=== PATIENT | male | born 1975 | race Caucasian/White ===

== ENCOUNTER 2023-12-12 18:07 | Inpatient (IN) | payer MEDICAID, SELFPAY ==
--- NOTE | ~2023-12-12 | CT_ITS ---
CT head/brain wo IV con CLINICAL INFORMATION: Reason for Exam Fall, head injury, R/O fracture, bleed COMPARISON: No prior CT scan available for comparison. TECHNIQUE: Department standard protocol. This CT examination was performed using dose optimization techniques as appropriate, variously including the following: *Automated exposure control *Adjustment of mA and/or kV according to patient size (this includes techniques or standardized protocols for targeted exams where dose is matched to indication/reason for exam; i.e. extremities or head) *Use of iterative reconstruction technique DLP: 890 mGy-cm FINDINGS: CEREBRAL HEMISPHERES: There is no evidence of intra-axial or extra-axial mass, hemorrhage or acute infarct. BRAIN PARENCHYMA: Normal brown-white matter differentiation. SUBDURAL SPACE: No bleed. BASAL GANGLIA AND PINEAL GLAND: Unremarkable VENTRICLES: Symmetric and normal in size. CEREBELLUM AND BRAINSTEM: No space-occupying mass, hemorrhage or acute infarct. CEREBELLOPONTINE ANGLES: No lesion found. ORBITS: No intraorbital mass. VESSELS: Unremarkable SKULL BASE: Unremarkable INCLUDED SINUSES AT SKULL BASE: Clear SKULL AND SKIN: Mucosal thickening right maxillary sinus and occluding the right ostiomeatal units. CT/CT head/brain wo IV con IMPRESSION: 1. No CT evidence of intracranial space-occupying mass, bleed or infarct. 2. Mucosal thickening right maxillary sinus and occluding the right ostiomeatal units.
--- NOTE | ~2023-12-12 | CT_ITS ---
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 TECHNIQUE: Multidetector volumetric imaging was performed from the superior aspect of the liver through the pubic symphysis 85 mL of Omnipaque 350 injected Sagittal and coronal reformatted images were obtained on the technologist's workstation. This CT examination was performed using dose optimization techniques as appropriate, variously including the following: *Automated exposure control *Adjustment of mA and/or kV according to patient size (this includes techniques or standardized protocols for targeted exams where dose is matched to indication/reason for exam; i.e. extremities or head) *Use of iterative reconstruction technique DLP: 2166 mGy-cm FINDINGS: LOWER THORAX: Included lung bases are clear. HEPATOBILIARY: No focal hepatic lesions. No biliary ductal dilatation. GALLBLADDER: Gallbladder unremarkable. SPLEEN: Spleen is normal in size. PANCREAS: Pancreas is small atrophic, there is mild peripancreatic fat stranding around the tail of the pancreas raising concern for pancreatitis. There is fluid-filled bilobed structure at the center of the fat stranding measuring 3 x 1.9 cm which could be a pseudocyst versus cystic lesion. There are pancreatic calcifications which might be sequela of chronic pancreatitis. pancreatic soft tissue stranding adherent fixed to the adjacent gastric wall. More advanced imaging with contrast enhanced MRI might be indicated for more investigation. STOMACH AND GASTROINTESTINAL TRACT: Stomach is grossly unremarkable. There is no bowel distention or thickening. No CT evidence of appendicitis. ADRENALS: No adrenal nodules. KIDNEYS/URETERS: Tiny cyst in the upper pole of the right kidney measure up to 7 mm, these are commonly benign, no follow-up imaging is recommended. No solid renal lesion or suspicious mass found. No kidney stone or hydronephrosis. URINARY BLADDER: Partially decompressed. PELVIC VISCERA: Unremarkable PERITONEUM: No free air or fluid. LYMPH NODES: No lymphadenopathy. VASCULAR:Abdominal aorta normal in size, no aneurysm found. BONES, ABDOMINAL WALL AND SOFT TISSUES: Age-appropriate changes of the spine and skeletal system, no destructive osteolytic or osteosclerotic bone lesion found CT/CT abdomen pelvis w IV con IMPRESSION: 1. There is mild peripancreatic fat stranding around the tail of the pancreas raising concern for MILD ACUTE PANCREATITIS. There are diffuse pancreatic calcifications which might be sequela of prior or chronic pancreatitis. 2. There is a bilobed fluid-filled structure within the tail of the pancreas at the center of the fat stranding measuring 3 x 1.9 cm which could be developing pseudocyst versus cystic neoplasm lesion. Pancreatic soft tissue from the tail is abutting tethering fixed into the adjacent gastric wall. More advanced imaging with contrast enhanced MRI might be indicated for more investigation to assess for the possibility of neoplasm. 3. Other noncritical findings as above.
--- NOTE | ~2023-12-12 | MR_ITS ---
EXAMINATION: MR ABDOMEN WITHOUT AND WITH CONTRAST MR CHOLANGIOPANCREATOGRAPHY CLINICAL INFORMATION: Abdominal pain, pancreatic cystic lesion COMPARISON: CT scan of abdomen and pelvis on 12/12/2023 TECHNIQUE: Examination was performed in a high field strength MRI scanner. Multiplanar multisequence MR imaging of the abdomen was performed without IV contrast enhancement. Multiphasic Axial T1-weighted fat-suppressed images of the upper abdomen were obtained after IV injection of 9 mL Gadavist. Coronal T1-weighted fat-suppressed images of the abdomen were obtained following the dynamic axial series. MR cholangiopancreatography was performed with heavily T2 weighted sequences. 3-dimensional reconstruction of image data was performed. This was performed under concurrent direct supervision and monitoring by radiologist. Maximum intensity projection images were constructed. FINDINGS: MR CHOLANGIOPANCREATOGRAPHY: Normal gallbladder without filling defects. Cystic duct is unremarkable. Bilateral intra hepatic bile ducts, common hepatic duct and common bile duct are normal in size without filling defects. Pancreatic duct shows serial saccular T2 hyperintense nonenhancing cystic lesion or varicose pattern of dilatation up to 0.66 cm in AP diameter in the distal pancreatic body and tail, contiguous with the septated cystic lesion. LIVER: The liver shows no focal lesion. The calculated hepatic fat percentage is 4.2%, compatible with normal. PANCREAS: Pancreas is diffusely atrophic. A nonenhancing septated cystic lesion is seen in the pancreatic tail, measuring 1.7 cm in AP diameter, 3.1 cm in width, 1.9 cm in vertical height with nonenhancing T1 hyperintense internal septations (previously 1.9 x [address] scan). No occluding mass lesion with abnormal signal or enhancement could be seen in the mid pancreatic body proximal to the dilated distal pancreatic duct. SPLEEN: Spleen is normal in size without focal lesion. ADRENAL: Bilateral adrenal glands are normal in shape and size. KIDNEYS: Bilateral kidneys are normal in size with a T2 hyperintense nonenhancing simple cyst at posterior lateral superior right renal pole measuring 0.8 cm in diameter, for which no follow up imaging is recommended. Advanced L4-L5 to L5-S1 degenerative lumbar disc disease and mild posterior disc protrusions are seen. MR/MR abdomen wo/w con IMPRESSION: 1. Persistent septated pancreatic tail cystic lesion with nonenhancing septations up to 3 cm in size is seen since earlier CT scan of abdomen. In addition, the current examination shows serial distal pancreatic body saccular cystic lesions or varicose dilatation of pancreatic duct without occluding pancreatic mass lesion. Findings may reflect post pancreatitis pancreatic duct stricture and multiple distal body and tail pseudocysts or multiple intraductal papillary mucinous neoplasms. 2. The pancreatic lesions show low risk imaging features. If endoscopic ultrasound examination and fine-needle aspiration are not contemplated, repeat imaging with pre and postcontrast MRI of abdomen with MRCP sequence every 6 months x4, followed by every 1 years x2, then every 2 years x3 to establish stability over 10 years is recommended by [employer]. 3. Normal gallbladder and biliary tree. 4. Right upper pole renal cortical simple cyst is found, for which no follow up imaging is recommended.
--- NOTE | ~2023-12-12 | CT_ITS ---
EXAMINATION: CT CERVICAL SPINE without contrast CLINICAL INFORMATION: Reason for Exam Fall, neck pain, rule out fracture COMPARISON: No prior CT available, TECHNIQUE: Computed axial sagittal and coronal images acquired using department's standard protocol. This CT examination was performed using dose optimization techniques as appropriate, variously including the following: *Automated exposure control *Adjustment of mA and/or kV according to patient size (this includes techniques or standardized protocols for targeted exams where dose is matched to indication/reason for exam; i.e. extremities or head) *Use of iterative reconstruction technique CONTRAST: None DLP: 491 mGy-cm FINDINGS: SKULL BASE: Visualized structures at skull base are normal, Included facial sinuses are clear, CERVICAL VERTEBRAE: All cervical vertebrae identified maintaining a proper height. Reversal of normal cervical lordosis probably spasm. Osseous density near the tip of the posterior spinous process of C7 probably incompletely fused secondary ossification center. Odontoid process is properly positioned intact. The lateral mass of C1 and atlantooccipital joints are intact. No prevertebral soft tissue swelling. DISCS: Loss of disc height and developed osteophytes from the edges of endplates at multiple levels especially at C5-C6 and C6-C7 suggests underlying degenerative disc disease. At C5-C6 there are small osteophytes protruding from the edges of endplates encroaching on the neural foramen bilaterally especially the right. Included lung apices are clear. There are peripheral emphysematous changes of the lungs. There are facet joints arthropathy at multiple levels. No fracture or dislocation. PARAVERTEBRAL SOFT TISSUE: There are few mildly enlarged cervical lymph nodes along the carotid sheaths on the right measure up to 2.8 cm craniocaudally, 1.2 x 1.2 cm axially. On the left 1.7 x 1.5 cm axially and about 2.2 cm craniocaudally, this could be inflammatory reactive, cannot rule out the possibility of primary or metastatic process. CT/CT cervical spine wo IV con IMPRESSION: 1. No CT evidence of cervical spine fracture. 2. Reversal of normal cervical lordosis probably spasm. 3. Advanced degenerative disc disease at multiple levels. 4. Facet joints arthropathy at multiple levels. 5. Peripheral pulmonary emphysema. 6. Developed osteophyte from the edges of endplates encroaching on the neural foramen possibly foraminal stenosis at C5-C6 right more than left, MRI could be utilized to assess for possible nerve impingement if clinically indicated. 7. Incidental finding was made of Mildly enlarged bilateral cervical lymph nodes along the carotid sheaths, although could be inflammatory or reactive, cannot rule out the possibility of primary or metastatic process. Clinical correlation and follow-up outpatient cervical ultrasound recommended. (Referring physician staff is being called, by physician staff assistance, to be alerted of the above critical findings and recommendations.) EM 12/12/2023 9:46 PM
--- NOTE | ~2023-12-12 | XR_ITS ---
EXAMINATION: XR KNEE, RIGHT CLINICAL INFORMATION: Knee pain rule out fracture COMPARISON: None available. TECHNIQUE: 2 views of right knee, including AP and lateral. FINDINGS: No significant narrowing cough medial compartment of right knee joint with subchondral sclerosis and marginal spurring seen. There is no fracture identified. There is suprapatellar fullness most likely due to small joint effusion. XR/XR knee RT 2V IMPRESSION: Changes of osteoarthritis and small joint effusion on the right
--- NOTE | ~2023-12-12 | XR_ITS ---
EXAMINATION: XR SHOULDER, RIGHT CLINICAL INFORMATION: Fall COMPARISON: None available. TECHNIQUE: 4 views frontal lateral oblique and scapular Y view of the right shoulder. FINDINGS: Cephalad migration of the humeral head, could be a sequela of chronic rotator cuff tear. Underlying degenerative osteoarthritis of the glenohumeral joint and mild DJD of adjacent AC joint. No radiographic evidence of acute fractures. Adjacent scapula and acromion process are intact. Included ribs and adjacent lungs are clear. XR/XR shoulder RT min 2V IMPRESSION: 1. No radiographic evidence of acute fracture. 2. Cephalad migration of humeral head could be a sequela of chronic rotator cuff tear. This can be evaluated by MRI if clinically indicated. 3. Underlying degenerative osteoarthritis.
[2023-12-12 18:28] VITALS: BP 128/90; BP 133/88; PULSE 78; PULSE 91; RESP 18; TEMP 36.8; O2SAT 95; O2SAT 98; BMI 25.3
--- NOTE | 2023-12-12 19:19 | ED_ITS ---
HPI - Abdominal Pain General Chief Complaint: Abdominal Pain Stated Complaint: L side pain getting worse.hx of pancreatitis Time Seen by Provider: 12/12/23 18:56 Source: patient Mode of arrival: EMS Limitations: no limitations History of Present Illness HPI narrative: 48-year-old male with a history of alcohol use disorder, pancreatitis, depression who was currently at [facility] for suicidal ideation who presents emergency department for evaluation of 3 days of epigastric and lower abdominal pain. Patient states the pain was initially intermittent but now is constant and is more severe. He points to his epigastric area and left lower quadrant area when asked to localize the pain. Pain is a constant ache with a severe sharp pain that is 9/10 at its worst. Patient states the pain feels similar to his pancreatitis pain that he has had in the past but it is much more severe. Patient states that he had 2-3 episodes of vomiting yesterday and 1 episode of vomiting today. There was no blood in the emesis. Patient states that last night at around midnight when he was in the bathroom he fainted and struck his head, right shoulder and right knee. Since that time he states he has had a headache, right shoulder and right knee pain. Patient states that he drinks 1-1/2 pt of vodka per day with his last drink being 4 days prior. He does not believe that he is getting any medications at [facility] for alcohol withdrawal. Patient states that he was depressed and suicidal secondary to the break up he is several months ago. Related Data Allergies Allergy/AdvReac Type Severity Reaction Status Date / Time No Known Allergies Allergy Verified 12/12/23 19:17 Review of Systems Review of Systems Yes all other systems are reviewed and are negative [facility] Past Medical History [facility] Narrative: Past medical history: Alcohol use disorder, depression, pancreatitis. Social history: Patient smokes 1 pack of cigarettes per day times 40 years. He drinks 1-1/2 pt of vodka daily but stopped drinking 4 days prior. He denies drug use. Social History Social History Smoked in Last 30 Days: No Use of substances other than those prescribed or required for medical reasons: No Advance Directives: No Advance Directives Information Provided: No Physical Exam ED Vital Signs: Vital Signs - 24 hr 12/12/23 18:28 12/12/23 21:04 Temperature 98.2 F 98.1 F Pulse Rate 91 72 Respiratory Rate 18 16 Blood Pressure 133/88 111/69 Pulse Oximetry 98 94 Oxygen Delivery Method Room Air Room Air BMI result Body Mass Index 25.3 Vital signs were normal Exam General: Awake, alert in no distress Head: Normocephalic, atraumatic EENT: PERRL, Lids normal, sclera normal, conjunctiva normal, nose normal , ears normal, throat without erythema or exudates Neck: Cervical spine tenderness and is with palpation of trapezius muscle bilaterally Lung: breath sounds symmetric, no wheezing, rales or rhonchi Chest: symmetric movement, nontender Heart: regular rate and rhythm, normal S1, S2 no murmurs or rubs Abdomen: Distended, normoactive bowel sounds, moderate epigastric tenderness, moderate left upper and left lower quadrant tenderness, no rebound, no voluntary or involuntary guarding Back: no vertebral tenderness, no CVAT Extremities: Right children right knee tenderness with no obvious deformity Neuro: Awake, alert, oriented, normal speech,moves all extremities symmetrically Psych: Pleasant, cooperative Medical Decision Making Medical Decision Making MDM Narrative: 48-year-old male with a history of alcohol use disorder, pancreatitis, depression who was currently at [facility] x3 days for suicidal ideation who presents emergency department for evaluation of 3 days of epigastric and lower abdominal pain initially intermittent but now constant and severe associated with nausea and vomiting, patient states that it feels similar to his pancreatitis pain but more severe. Patient also states that his syncopal episode last night at around midnight, he struck his head, right shoulder and right knee. Patient drinks 1-1/2 pt of vodka per day with last drink 4 days prior. Vital signs were normal. Exam did reveal epigastric left upper and left lower quadrant tenderness, tenderness palpation of his right knee and right shoulder. Also has cervical spine tenderness. Differential diagnosis: Abdominal pain:-pancreatitis, diverticulitis, ureteral colic Syncope: Vasovagal syncope secondary to pain, myocardial ischemia, myocardial infarction, arrhythmia, electrolyte abnormality, anemia Fall: Skull fracture, intracranial bleed, cervical fracture, cervical neck strain, right shoulder fracture, right shoulder contusion, right knee fracture, right knee contusion Following evaluation was ordered: CBC, CMP, lipase, troponin, urinalysis, CT head and cervical spine, CT abdomen pelvis with IV contrast, XR right shoulder and right knee Patient was treated with the following: Zofran 4 mg IV, Toradol 15 mg IV and normal saline x1 L 22:39 My interpretation patient's laboratory evaluation is as follows: CBC was normal. CMP revealed an elevated alk-phos of 157 and a normal lipase of 45. Troponin was below detectable limits. CT scan of the head was negative. CT scan of the abdomen pelvis with IV contrast is consistent with acute on chronic pancreatitis. Patient got minimal improvement with Toradol 15 mg IV and morphine 4 mg IV, he was ordered to get Dilaudid 1 mg IV. X-rays of the right shoulder and right knee were negative for fracture. I did discuss the incidental finding on the CT scan of the neck with the patient and the need for follow-up as an outpatient Patient's presentation was discussed with the covering hospitalist, Dr. Martinez and the patient is admitted for further management. Lab Data 12/12/23 19:52 12/12/23 19:52 Labs: Lab Results 12/12/23 Range/Units 19:52 WBC 7.8 (4.8-10.8) X10*3/uL RBC 4.91 (4.60-5.80) X10*6/uL Hgb 14.0 (14.0-18.0) g/dl Hct 42.9 (42.0-52.0) % MCV 87.4 (80.0-98.0) fL MCH 28.5 (27.0-33.0) pg MCHC 32.6 (31.0-36.0) g/dl RDW 15.9 (11.0-16.0) % Plt Count 347 (160-400) X10*3/uL MPV 9.2 L (9.4-12.4) fL Immature Gran % (Auto) 0.3 (0.0-0.4) % Neut % (Auto) 53.5 (45-73) % Lymph % (Auto) 27.4 (20-40) % [place] % (Auto) 12.1 H (2-11) % Eos % (Auto) 6.4 H (0-4) % Baso % (Auto) 0.3 (0-2) % Lymph # (Auto) 2.1 (1.2-4.9) X10*3/uL [place] # (Auto) 0.9 (0.1-1.2) X10*3/uL Eos # (Auto) 0.5 H (0.0-0.4) X10*3/uL Baso # (Auto) 0.0 (0.0-0.2) X10*3/uL Abs Immat Gran (auto) 0.02 (0.00-0.03) X10*3/uL Absolute Neuts (auto) 4.2 (2.0-8.3) x10*3/uL Absolute Nucleated RBC 0.000 (0.0-0.012) X10*3/uL Nucleated RBC % (auto) 0.0 (0.0-0.2) /100WBC Sodium 138 (135-145) mmol/L Potassium 4.3 (3.3-5.1) mmol/L Chloride 103 (96-108) mmol/L Carbon Dioxide 26 (22-29) mmol/L Anion Gap 13 (12-20) BUN 13 (9-16) mg/dL Creatinine 0.71 (0.5-1.4) mg/dL Estim Creat Clear Calc 140.6 Estimated GFR > 60 Random Glucose 98 (60-115) mg/dL Calcium 9.6 (8.4-10.2) mg/dL Total Bilirubin 0.2 (0.0-1.0) mg/dL AST 13 (5-37) U/L ALT 18 (0-40) U/L Alkaline Phosphatase 157 H (39-117) U/L Troponin I High Sens < 2.7 (<3.5-35.0) ng/L Total Protein 8.1 H (6.5-8.0) g/dL Albumin 4.1 (3.5-5.0) g/dL Lipase 45 (8-78) U/L Independent Interpretation I performed an independent interpretation of an: EKG and Plain X-Ray Interpretation: My independent interpretation patient's 12 EKG done at 19:33 hours is as follows: Normal sinus rhythm rate of 84, normal CT interval, QRS duration QTC interval, no ST segment elevation, no ST segment depression, no T-wave abnormalities, no PVCs, no PACs-this is a normal EKG My independent interpretation patient's right shoulder and right knee x-ray is as follows: No acute fractures seen Radiology Impression Discussion of test interpretation with radiology: I have reviewed the radiologist's reading. Radiologist Impression: CT head/brain wo IV con IMPRESSION: 1. No CT evidence of intracranial space-occupying mass, bleed or infarct. 2. Mucosal thickening right maxillary sinus and occluding the right ostiomeatal units. Dictated By: Jeremy Edwards MD CT cervical spine wo IV con IMPRESSION: 1. No CT evidence of cervical spine fracture. 2. Reversal of normal cervical lordosis probably spasm. 3. Advanced degenerative disc disease at multiple levels. 4. Facet joints arthropathy at multiple levels. 5. Peripheral pulmonary emphysema. 6. Developed osteophyte from the edges of endplates encroaching on the neural foramen possibly foraminal stenosis at C5-C6 right more than left, MRI could be utilized to assess for possible nerve impingement if clinically indicated. 7. Incidental finding was made of Mildly enlarged bilateral cervical lymph nodes along the carotid sheaths, although could be inflammatory or reactive, cannot rule out the possibility of primary or metastatic process. Clinical correlation and follow-up outpatient cervical ultrasound recommended. (Referring physician staff is being called, by physician staff assistance, to be alerted of the above critical findings and recommendations.) EM 12/12/2023 9:46 PM Dictated By: Jeremy Edwards MD CT abdomen pelvis w IV con IMPRESSION: 1. There is mild peripancreatic fat stranding around the tail of the pancreas raising concern for MILD ACUTE PANCREATITIS. There are diffuse pancreatic calcifications which might be sequela of prior or chronic pancreatitis. 2. There is a bilobed fluid-filled structure within the tail of the pancreas at the center of the fat stranding measuring 3 x 1.9 cm which could be developing pseudocyst versus cystic neoplasm lesion. Pancreatic soft tissue from the tail is abutting tethering fixed into the adjacent gastric wall. More advanced imaging with contrast enhanced MRI might be indicated for more investigation to assess for the possibility of neoplasm. 3. Other noncritical findings as above. Dictated By: Jeremy Edwards MD XR shoulder RT min 2V IMPRESSION: 1. No radiographic evidence of acute fracture. 2. Cephalad migration of humeral head could be a sequela of chronic rotator cuff tear. This can be evaluated by MRI if clinically indicated. 3. Underlying degenerative osteoarthritis. Dictated By: Jeremy Edwards MD XR knee RT 2V IMPRESSION: Changes of osteoarthritis and small joint effusion on the right Dictated By: Meng Orozco MD Medications Administered Discontinued Medications Generic Name Dose Route Start Last Admin Trade Name Greyq PRN Reason Stop Dose Admin Sodium Chloride 1,000 mls @ 999 mls/hr 12/12/23 19:18 12/12/23 19:54 Ns IV 12/12/23 20:18 999 mls/hr .Q1H1M STA Administration Iohexol 100 ml 12/12/23 20:32 12/12/23 20:36 Iohexol 350 Mg/Ml 100 Ml Infus..Btl IV 12/12/23 20:33 85 ml ONCE ONE Administration Ketorolac Tromethamine 15 mg 12/12/23 19:17 12/12/23 19:54 Ketorolac Tromethamine 15 Mg/Ml Vial IVPUSH 12/12/23 19:18 15 mg ONCE STA Administration Morphine Sulfate 4 mg 12/12/23 20:48 12/12/23 21:01 Morphine Sulfate 4 Mg/Ml Cartridge IVPUSH 12/12/23 20:49 4 mg ONCE STA Administration Protocol Ondansetron HCl 4 mg 12/12/23 19:17 12/12/23 19:54 Ondansetron Hcl 4 Mg/2 Ml Vial IVPUSH 12/12/23 19:18 4 mg ONCE ONE Administration Ondansetron HCl 4 mg 12/12/23 20:48 12/12/23 21:02 Ondansetron Hcl 4 Mg/2 Ml Vial IVPUSH 12/12/23 20:49 4 mg ONCE ONE Administration Critical Care Time Critical Care Time Critical Care Time: Yes Total Critical Care Time: 35 Attestation: Critical Care: The patient was critically ill with a high probability of imminent or life threatening deterioration. I spent greater than 30 minutes of discontinuous time evaluating the patient,delivering critical care at the bedside, discussing and evaluating pertinent data with consultants. Critical care time does not include time spent performing separately billable procedures or teaching. Total time spent performing critical care was 35 minutes. Discharge Plan Discharge Patient Disposition: Admitted As Inpatient
--- NOTE | 2023-12-12 19:23 | ECG_ITS ---
Test Reason : ABD PAIN Blood Pressure : / mmHG Vent. Rate : 084 BPM Atrial Rate : 084 BPM P-R Int : 148 ms QRS Dur : 078 ms QT Int : 354 ms P-R-T Axes : 077 075 072 degrees QTc Int : 418 ms Normal sinus rhythm Normal ECG No previous ECGs available Referred By: Obdulio Salvador Electronically Signed By:Toño Sanchez
[2023-12-12] MEDS: 0.9 % Sodium Chloride 1,000 ML 999 ML IV (19:54)
[2023-12-12] MEDS: ondansetron HCL 4 MG/2 ML VIAL IVPUSH ×2 (19:54→21:02)
[2023-12-12] MEDS: Ketorolac Tromethamine 15 MG/ML VIAL IVPUSH (19:54)
[2023-12-12 19:56] LABS: MANUAL DIFF FLAG NO
[2023-12-12 20:00] LABS: Basophils Percent Auto 0.3 % (0-2); Eosinophils Absolute Auto 0.5 X10*3/uL (0.0-0.4); Eosinophils Percent Auto 6.4 % (0-4); Hematocrit 42.9 % (42.0-52.0); Imm Gran Abs Auto 0.02 X10*3/uL (0.00-0.03); Imm Gran Pct Auto 0.3 % (0.0-0.4); Lymphocytes Absolute Auto 2.1 X10*3/uL (1.2-4.9); Lymphocytes Percent Auto 27.4 % (20-40); Mean Corpuscular HGB Conc 32.6 g/dl (31.0-36.0); Mean Corpuscular Hemoglobin 28.5 pg (27.0-33.0); Mean Corpuscular Volume 87.4 fL (80.0-98.0); Mean Platelet Volume 9.2 fL (9.4-12.4); Monocytes Absolute Auto 0.9 X10*3/uL (0.1-1.2); Monocytes Percent Auto 12.1 % (2-11); Neutrophils Absolute Auto 4.2 x10*3/uL (2.0-8.3); Neutrophils Percent Auto 53.5 % (45-73); Platelet Count 347 X10*3/uL (160-400); Red Blood Count 4.91 X10*6/uL (4.60-5.80); Red Cell Distribution Width 15.9 % (11.0-16.0); White Blood Count 7.8 X10*3/uL (4.8-10.8)
[2023-12-12 20:14] LABS: Alanine Aminotransferase 18 U/L (0-40); Albumin Level 4.1 g/dL (3.5-5.0); Alkaline Phosphatase 157 U/L (39-117); Anion Gap 13 (12-20); Aspartate Amino Transferase 13 U/L (5-37); Bilirubin Total 0.2 mg/dL (0.0-1.0); Blood Urea Nitrogen 13 mg/dL (9-16); Calcium 9.6 mg/dL (8.4-10.2); Carbon Dioxide 26 mmol/L (22-29); Chloride 103 mmol/L (96-108); Creatinine Clr Calc Pharmacy 140.6; Estimated Glomerular Filt Rate > 60; Glucose Random 98 mg/dL (60-115); Lipase 45 U/L (8-78); Potassium 4.3 mmol/L (3.3-5.1); Sodium 138 mmol/L (135-145); Total Protein 8.1 g/dL (6.5-8.0)
[2023-12-12 20:22] LABS: Troponin-I High Sensitivity < 2.7 ng/L (<3.5-35.0)
[2023-12-12] MEDS: iohexoL 350 MG/ML 100 ML INFUS..BTL IV (20:36)
[2023-12-12] MEDS: Morphine Sulfate 4 MG/ML CARTRIDGE IVPUSH (21:01)
[2023-12-12 21:04] VITALS: BP 111/69; PULSE 72; RESP 16; TEMP 36.7; O2SAT 94
--- NOTE | 2023-12-12 22:21 | PC.NURSE ---
Matilde from [facility] called requesting an update. Update provided with pts approval.
--- NOTE | 2023-12-12 23:03 | PM.IMHP ---
History of Present Illness Date of Service: 12/12/23 Chief Complaint: Abdominal pain This is a 48-year-old male with pertinent history of mood disorder, alcohol use disorder with history of alcohol induced pancreatitis and alcohol withdrawal seizures, opioid disorder on Suboxone who presents to the emergency department for evaluation of abdominal pain. Patient states he started having epigastric discomfort 2 days prior to presentation. It was constant, progressive over 2 days and radiated to the back. It felt like his pain of pancreatitis that he is experienced before. Also has associated nausea and nonbloody emesis. Patient states his last alcoholic drink was 2-3 days prior to presentation. States he was withdrawing over the last 2-3 days but now feels like he is past his withdrawal. Patient is currently at [facility] for suicidal ideation. Admits to drinking about 1.5 pt of vodka every day since he from his several months ago. Patient further states that here in episode where he passed out and hit his head 1 day prior to presentation when he was in the bathroom and urinating. This has never happened before. No fever, chills, chest discomfort, palpitations, changes in urinary or bowel habits. No tongue bite, rhythmic jerking movement of extremities In the emergency department, imaging with peripancreatic fat stranding. Review of Systems Constitutional: Constitutional: Reports no additional constitutional complaints Cardiovascular: Cardiovascular: Reports no additional cardiovascular complaints and Reports syncope Respiratory: Respiratory: Reports no additional respiratory complaints Gastrointestinal: Gastrointestinal: Reports abdominal pain, Reports nausea and Reports vomiting Genitourinary: Genitourinary: Reports no additional male genitourinary complaints Musculoskeletal: Musculoskeletal: Reports no additional musculoskeletal complaints Neurologic: Reports syncope Psychiatric: Psychiatric: Reports suicidal ideation [facility] Social History Smoked in Last 30 Days: No Use of substances other than those prescribed or required for medical reasons: No Advance Directives: No Advance Directives Information Provided: No Meds Allergies Allergy/AdvReac Type Severity Reaction Status Date / Time No Known Allergies Allergy Verified 12/12/23 19:17 Active Medications: Current Medications Acetaminophen (Acetaminophen 325 Mg Tablet) 650 mg PO Q6H PRN PRN Reason: Pain, Mild (Pain Scale 1-3) Acetaminophen (Acetaminophen Supp 650 Mg Supp.Rect) [address] Q6H PRN PRN Reason: Pain, Mild (Pain Scale 1-3) Enoxaparin Sodium (Enoxaparin Sodium 40 Mg/0.4 Ml Syringe) 40 mg SUBCUT Q24H [facility] Lactated Ringer's (Lr) 1,000 mls @ 999 mls/hr IV .Q1H1M [facility] Stop: 12/13/23 00:00 Melatonin (Melatonin 3 Mg Tablet) 6 mg PO BEDTIME PRN PRN Reason: Insomnia Morphine Sulfate (Morphine Sulfate 4 Mg/Ml Cartridge) 4 mg IVPUSH Q4H PRN; Protocol PRN Reason: Pain, Severe (Pain Scale 7-10) Ondansetron HCl (Ondansetron Hcl 4 Mg/2 Ml Vial) 4 mg IVPUSH Q8H PRN PRN Reason: Nausea and Vomiting Sodium Chloride (0.9 % Sodium Chloride Flush 3 Ml Syringe) 3 ml IVFLUSH QSHIFT [facility] Physical Exam Vital Signs and Narrative: Vital Signs: Last Vital Signs Temp 98.1 F 12/12/23 21:04 Pulse 72 12/12/23 21:04 Resp 16 12/12/23 21:04 BP 111/69 12/12/23 21:04 Pulse Ox 94 12/12/23 21:04 O2 Del Method Room Air 12/12/23 21:04 BMI result Body Mass Index 25.3 Middle-aged male lying in bed in no distress Neck supple, no JVD Regular rate and rhythm, S1-S2 heard Regular breath sounds bilaterally, no wheezing or crackles appreciated Abdomen with epigastric tenderness and mild guarding, no rigidity, no rebound tenderness Patient is awake, alert and oriented to self, place, time and person ; no focal motor deficit Psych: Normal mood No pedal edema Results Labs 12/12/23 19:52 12/12/23 19:52 Labs: Laboratory Results - last 24 hr 12/12/23 19:52 MCV 87.4 MCH 28.5 MCHC 32.6 RDW 15.9 Plt Count 347 MPV 9.2 L Immature Gran % (Auto) 0.3 Neut % (Auto) 53.5 Lymph % (Auto) 27.4 [place] % (Auto) 12.1 H Eos % (Auto) 6.4 H Baso % (Auto) 0.3 Lymph # (Auto) 2.1 [place] # (Auto) 0.9 Eos # (Auto) 0.5 H Baso # (Auto) 0.0 Abs Immat Gran (auto) 0.02 Absolute Neuts (auto) 4.2 Absolute Nucleated RBC 0.000 Nucleated RBC % (auto) 0.0 Anion Gap 13 Estim Creat Clear Calc 140.6 Estimated GFR > 60 Random Glucose 98 Calcium 9.6 Total Bilirubin 0.2 AST 13 ALT 18 Alkaline Phosphatase 157 H Troponin I High Sens < 2.7 Total Protein 8.1 H Albumin 4.1 Lipase 45 Imaging Radiologist's Impressions: Impressions Knee X-Ray 12/12/23 19:44 IMPRESSION: Changes of osteoarthritis and small joint effusion on the right Shoulder X-Ray 12/12/23 19:44 IMPRESSION: 1. No radiographic evidence of acute fracture. 2. Cephalad migration of humeral head could be a sequela of chronic rotator cuff tear. This can be evaluated by MRI if clinically indicated. 3. Underlying degenerative osteoarthritis. Abdomen/Pelvis CT 12/12/23 20:51 IMPRESSION: 1. There is mild peripancreatic fat stranding around the tail of the pancreas raising concern for MILD ACUTE PANCREATITIS. There are diffuse pancreatic calcifications which might be sequela of prior or chronic pancreatitis. 2. There is a bilobed fluid-filled structure within the tail of the pancreas at the center of the fat stranding measuring 3 x 1.9 cm which could be developing pseudocyst versus cystic neoplasm lesion. Pancreatic soft tissue from the tail is abutting tethering fixed into the adjacent gastric wall. More advanced imaging with contrast enhanced MRI might be indicated for more investigation to assess for the possibility of neoplasm. 3. Other noncritical findings as above. Cervical Spine CT 12/12/23 21:05 IMPRESSION: 1. No CT evidence of cervical spine fracture. 2. Reversal of normal cervical lordosis probably spasm. 3. Advanced degenerative disc disease at multiple levels. 4. Facet joints arthropathy at multiple levels. 5. Peripheral pulmonary emphysema. 6. Developed osteophyte from the edges of endplates encroaching on the neural foramen possibly foraminal stenosis at C5-C6 right more than left, MRI could be utilized to assess for possible nerve impingement if clinically indicated. 7. Incidental finding was made of Mildly enlarged bilateral cervical lymph nodes along the carotid sheaths, although could be inflammatory or reactive, cannot rule out the possibility of primary or metastatic process. Clinical correlation and follow-up outpatient cervical ultrasound recommended. (Referring physician staff is being called, by physician staff assistance, to be alerted of the above critical findings and recommendations.) EM 12/12/2023 9:[address] 12/12/23 21:05 IMPRESSION: 1. No CT evidence of intracranial space-occupying mass, bleed or infarct. 2. Mucosal thickening right maxillary sinus and occluding the right ostiomeatal units. Assessment and Plan (1) Acute on chronic pancreatitis: Status: Acute (2) Suicidal ideations: Status: Acute Plan This is a 48-year-old male with pertinent history of mood disorder, alcohol use disorder with history of alcohol induced pancreatitis and alcohol withdrawal seizures, opioid disorder on Suboxone who presents to the emergency department for evaluation of abdominal pain. #. Acute on chronic pancreatitis, likely in the setting of alcohol use disorder: Does have epigastric tenderness and imaging evidence of peripancreatic fat stranding. Imaging with pseudocyst versus cystic neoplasm. Will obtain MRI to further delineate the anatomy. Will admit patient and continue IV crystalloid resuscitation. IV opioid p.r.n. for symptomatic relief. Obtaining triglyceride level. Clear liquid diet and advance as tolerated #. Syncope, reflux triggered by micturition #. Suicidal ideation: 1:1 sitter. Consulting psych and continue home mood stabilizers #. Alcohol use disorder: Monitor CIWA. Initiating thiamine. Consulted Addiction Team, appreciate assistance #. Bilateral cervical lymph node enlargement on imaging: Follow-up with outpatient cervical ultrasound DVT prophylaxis: Lovenox Full code Admit as inpatient and will require two night minimum hospital stay for treatment of acute pancreatitis (as above), which is not possible in a lesser acute setting. Quality Stroke Does the patient have a stroke diagnosis?: No VTE Prior VTE?: No VTE Risk Level:: Medical - moderate - high VTE Device Contraindication: Treatment Not Indicated VTE Drug Contraindication: N/A - Med Ordered
[2023-12-12] MEDS: Lactated Ringers 1,000 ML 999 ML IV (23:12)
[2023-12-12] MEDS: HYDROmorphone HCl 1 MG/ML SYRINGE IVPUSH (23:12)
[2023-12-12] MEDS: 0.9 % Sodium Chloride Flush 3 ML SYRINGE IVFLUSH (23:16)
[2023-12-12] MEDS: Melatonin 3 MG TABLET 6 MG PO (23:20)
[2023-12-12] MEDS: Enoxaparin Sodium 40 MG/0.4 ML SYRINGE SUBCUT (23:20)
[2023-12-12] MEDS: Thiamine HCL 100 MG in 0.9 % Sodium Chloride 100 ML 202 MG IV (23:20)
[2023-12-12 23:44] VITALS: BP 107/73; PULSE 77; RESP 18; TEMP 36.8; O2SAT 96
--- NOTE | 2023-12-12 23:45 | MHC.EDTECH ---
This tech took over care of patient at 2300, Hourly rounds and vitals completed, patient was changed into crisis attire, belonging list completed. Patient came from [facility] patient only had a shirt on with nj pants. Patient ambulated top bathroom with a steady gait,urine sample obtained and sent to lab.
[2023-12-13 00:03] LABS: Appearance Urine Clear; Color Urine Yellow; Glucose Urine UA Negative (Negative); Leukocyte Esterase Urine Negative (Negative); Nitrite Urine Negative (Negative); Specific Gravity - Urine >= 1.030 (1.005-1.025); Urine Blood Negative (Negative); Urine Ketones Negative (Negative); Urine Protein Negative (Neg-Trace)
[2023-12-13] MEDS: 0.9 % Sodium Chloride 1,000 ML 125 ML IVCONT ×3 (00:48→15:55)
[2023-12-13 01:02] LABS: Triglycerides 295 mg/dL (<150)
--- NOTE | 2023-12-13 01:38 | MHC.EDTECH ---
Addendum entered by Dorina Haley 12/13/23 01:40: Hourly rounds completed,patient is resting comfortably at this time,1-1 sitter at bedside Original Note: Locked pts shirt and socks in the pod in [employer], patient has no other belongings
[2023-12-13 02:02] VITALS: BP 111/71; PULSE 68; RESP 16; O2SAT 95
--- NOTE | 2023-12-13 02:45 | PC.NURSE ---
Pt reporting increased abd pain and would like Dilaudid for the pain. [place] text sent to Dr. Darnell as pt has Morphine PRN and not Dilaudid.
[2023-12-13] MEDS: HYDROmorphone HCl 1 MG/ML SYRINGE IVPUSH (03:05)
[2023-12-13 04:10] VITALS: BP 105/76; PULSE 66; RESP 12; TEMP 36.3; O2SAT 94
--- NOTE | 2023-12-13 04:10 | MHC.EDTECH ---
Hourly rounds and vitals completed,patient is resting at this time, call castillo in reach and 1-1 sitter at bedside.
[2023-12-13 06:28] LABS: MANUAL DIFF FLAG NO
[2023-12-13 06:31] LABS: Basophils Percent Auto 0.5 % (0-2); Eosinophils Absolute Auto 0.5 X10*3/uL (0.0-0.4); Eosinophils Percent Auto 7.8 % (0-4); Hematocrit 41.2 % (42.0-52.0); Hemoglobin 13.2 g/dl (14.0-18.0); Imm Gran Abs Auto 0.02 X10*3/uL (0.00-0.03); Imm Gran Pct Auto 0.3 % (0.0-0.4); Lymphocytes Absolute Auto 2.1 X10*3/uL (1.2-4.9); Lymphocytes Percent Auto 33.1 % (20-40); Mean Corpuscular Hemoglobin 28.5 pg (27.0-33.0); Mean Platelet Volume 9.4 fL (9.4-12.4); Monocytes Absolute Auto 0.9 X10*3/uL (0.1-1.2); Monocytes Percent Auto 13.5 % (2-11); Neutrophils Absolute Auto 2.9 x10*3/uL (2.0-8.3); Neutrophils Percent Auto 44.8 % (45-73); Platelet Count 309 X10*3/uL (160-400); Red Blood Count 4.63 X10*6/uL (4.60-5.80); Red Cell Distribution Width 15.9 % (11.0-16.0); White Blood Count 6.4 X10*3/uL (4.8-10.8)
--- NOTE | 2023-12-13 06:40 | MHC.EDTECH ---
Hourly rounds completed,patient is resting and sitter at bedside
[2023-12-13 06:51] LABS: Anion Gap 10 (12-20); Blood Urea Nitrogen 10 mg/dL (9-16); Calcium 8.6 mg/dL (8.4-10.2); Carbon Dioxide 26 mmol/L (22-29); Chloride 108 mmol/L (96-108); Creatinine Clr Calc Pharmacy 133.1; Estimated Glomerular Filt Rate > 60; Glucose Random 91 mg/dL (60-115); Potassium 4.4 mmol/L (3.3-5.1); Sodium 140 mmol/L (135-145)
[2023-12-13 07:24] VITALS: BP 110/72; PULSE 65; RESP 12; TEMP 36.6; O2SAT 96
--- NOTE | 2023-12-13 08:00 | MHC.EDTECH ---
pt refused breakfast this morning, rn aware
[2023-12-13] MEDS: Thiamine HCL 100 MG TABLET PO (09:18)
[2023-12-13] MEDS: ondansetron HCL 4 MG/2 ML VIAL IVPUSH (11:12)
[2023-12-13] MEDS: Morphine Sulfate 4 MG/ML CARTRIDGE IVPUSH ×3 (11:12→21:42)
--- NOTE | 2023-12-13 12:05 | HO.PM.IMPN ---
Subjective Subjective Date of Service: 12/13/23 Interval History: abd pain Physical Exam Vital Signs: Vital Signs: Last Vital Signs Temp 98 F 12/13/23 07:24 Pulse 65 12/13/23 07:24 Resp 12 12/13/23 07:24 BP 110/72 12/13/23 07:24 Pulse Ox 96 12/13/23 07:24 O2 Del Method Room Air 12/13/23 07:24 BMI result Body Mass Index 25.3 General: AO X 3, no acute distress Resp: CTA bilateral, no accessory muscles used CVS: S1,S2,RRR GI: soft, epsigatrum tender, non distended Neuro: motor grossly intact, alert Psych: appropriate affect, appropriate insight Objective Data Active Medications Acetaminophen (Acetaminophen 325 Mg Tablet) 650 mg PO Q6H PRN PRN Reason: Pain, Mild (Pain Scale 1-3) Acetaminophen (Acetaminophen Supp 650 Mg Supp.Rect) 650 mg [place] Q6H PRN PRN Reason: Pain, Mild (Pain Scale 1-3) Enoxaparin Sodium (Enoxaparin Sodium 40 Mg/0.4 Ml Syringe) 40 mg SUBCUT Q24H [facility] Last Admin: 12/12/23 23:20 Dose: 40 mg Documented By: RADHA Sodium Chloride (Ns) 1,000 mls @ 125 mls/hr IVCONT .Q8H [facility] Last Admin: 12/13/23 09:18 Dose: 125 mls/hr Documented By: TETE Melatonin (Melatonin 3 Mg Tablet) 6 mg PO BEDTIME PRN PRN Reason: Insomnia Last Admin: 12/12/23 23:20 Dose: 6 mg Documented By: RADHA Morphine Sulfate (Morphine Sulfate 4 Mg/Ml Cartridge) 4 mg IVPUSH Q4H PRN; Protocol PRN Reason: Pain, Severe (Pain Scale 7-10) Last Admin: 12/13/23 11:12 Dose: 4 mg Documented By: TETE Ondansetron HCl (Ondansetron Hcl 4 Mg/2 Ml Vial) 4 mg IVPUSH Q8H PRN PRN Reason: Nausea and Vomiting Last Admin: 12/13/23 11:12 Dose: 4 mg Documented By: TETE Sodium Chloride (0.9 % Sodium Chloride Flush 3 Ml Syringe) 3 ml IVFLUSH QSHIFT [facility] Last Admin: 12/13/23 07:22 Dose: Not Given Documented By: TETE Non-Admin Reason: IV Running Thiamine HCl (Thiamine Hcl 100 Mg Tablet) 100 mg PO DAILY [facility] Last Admin: 12/13/23 09:18 Dose: 100 mg Documented By: TETE Labs 12/13/23 05:59 12/13/23 05:59 Labs: Laboratory Results - last 24 hr 12/12/23 12/12/23 12/13/23 19:52 23:52 05:59 MCV 87.4 89.0 MCH 28.5 28.5 MCHC 32.6 32.0 RDW 15.9 15.9 Plt Count 347 309 MPV 9.2 L 9.4 Immature Gran % (Auto) 0.3 0.3 Neut % (Auto) 53.5 44.8 L Lymph % (Auto) 27.4 33.1 Campbell % (Auto) 12.1 H 13.5 H Eos % (Auto) 6.4 H 7.8 H Baso % (Auto) 0.3 0.5 Lymph # (Auto) 2.1 2.1 Campbell # (Auto) 0.9 0.9 Eos # (Auto) 0.5 H 0.5 H Baso # (Auto) 0.0 0.0 Abs Immat Gran (auto) 0.02 0.02 Absolute Neuts (auto) 4.2 2.9 Absolute Nucleated RBC 0.000 0.000 Nucleated RBC % (auto) 0.0 0.0 Anion Gap 13 10 L Estim Creat Clear Calc 140.6 133.1 Estimated GFR > 60 > 60 Random Glucose 98 91 Calcium 9.6 8.6 D Total Bilirubin 0.2 AST 13 ALT 18 Alkaline Phosphatase 157 H Troponin I High Sens < 2.7 Total Protein 8.1 H Albumin 4.1 Triglycerides 295 H Lipase 45 Urine Color Yellow Urine Appearance Clear Urine pH 8.0 Ur Specific [place] >= 1.030 H Urine Protein Negative Urine Glucose (UA) Negative Urine Ketones Negative Urine Blood Negative Urine Nitrite Negative Ur Leukocyte Esterase Negative Assessment and Plan (1) Suicidal ideations: Status: Acute Plan 48M PMH etoh dependence with history of pancreatitis, opiate dependence, presented with abd pain, SI acute etoh pancreatitis with ?pseuodcyst ivf, clears, pain control, mri abd etoh and opiate dpeendecne ciwa addiction eval SI care team eval on medical clearance 1:1 dvt prophylaxis- lovenox full code reason for continued hospitalization:not tolerating solids Quality Stroke Does the patient have a stroke diagnosis?: No VTE Prior VTE?: No VTE Risk Level:: Medical - moderate - high VTE Device Contraindication: Treatment Not Indicated VTE Drug Contraindication: N/A - Med Ordered
--- NOTE | 2023-12-13 12:42 | PHA.MEDREC ---
Pharmacy Consult ? Medication Reconciliation Pharmacy has completed the medication reconciliation. Patient gave a verbal list of medications but unable to confirm (called [facility] a few times but no one picked up the phone), can only confirm the suboxone (pharmacy claim in PDMP). Dr. Manzanares was made awared.
--- NOTE | 2023-12-13 12:57 | PM.PSYCN ---
History of Present Illness Date of Service: 12/13/2023 Chief Complaint: Abd pain Reason for Consult: SI Requesting physician: Shine Manzanares Discussed with referring provider: Yes Sources of Information: patient interviewed, chart reviewed and crisis/core team assessment reviewed HPI Narrative: Mr. Robb is a 48 year-old male with hx of MDD, alcohol, opioid use disorder who was brought via EMS from [facility] where he was receiving psychiatric treatment for depression and suicidality. He was medically admitted for acute pancreatitis. Consult for psych due to SI. Pt seen in the ED. Pt reports he is in a lot of pain and unable to keep food or meds without having episode of emesis. Pt reports hx of depression. He reports recent relapsed on alcohol for about 2 weeks but reports prior to that he had not had alcohol in several weeks. No tremors noted. No alcoholic hallucinosis nor s/s of delirium. Last drink about 4-5 days. Pt denies any plan or intent to harm himself at the moment but would like to resume psychiatric treatment once medically clear. He is currently off all medications at his request due to upset stomach. Diagnostics Vital Signs (24Hr): Vital Signs - 24 hr 12/12/23 18:28 12/12/23 21:04 12/12/23 23:44 Temperature 98.2 F 98.1 F 98.2 F Pulse Rate 91 72 77 Respiratory Rate 18 16 18 Blood Pressure 133/88 111/69 107/73 Pulse Oximetry 98 94 96 Oxygen Delivery Method Room Air Room Air Room Air 12/13/23 02:02 12/13/23 04:10 12/13/23 07:24 Temperature 97.4 F 98 F Pulse Rate 68 66 65 Respiratory Rate 16 12 12 Blood Pressure 111/71 105/76 110/72 Pulse Oximetry 95 94 96 Oxygen Delivery Method Room Air Room Air Room Air BMI result Body Mass Index 25.3 Labs 12/14/23 05:31 12/14/23 05:31 Labs: Laboratory Results - last 48 hr 12/12/23 12/12/23 12/13/23 19:52 23:52 05:59 WBC 7.8 6.4 RBC 4.91 4.63 Hgb 14.0 13.2 L Hct 42.9 41.2 L MCV 87.4 89.0 MCH 28.5 28.5 MCHC 32.6 32.0 RDW 15.9 15.9 Plt Count 347 309 MPV 9.2 L 9.4 Immature Gran % (Auto) 0.3 0.3 Neut % (Auto) 53.5 44.8 L Lymph % (Auto) 27.4 33.1 [place] % (Auto) 12.1 H 13.5 H Eos % (Auto) 6.4 H 7.8 H Baso % (Auto) 0.3 0.5 Lymph # (Auto) 2.1 2.1 [place] # (Auto) 0.9 0.9 Eos # (Auto) 0.5 H 0.5 H Baso # (Auto) 0.0 0.0 Abs Immat Gran (auto) 0.02 0.02 Absolute Neuts (auto) 4.2 2.9 Absolute Nucleated RBC 0.000 0.000 Nucleated RBC % (auto) 0.0 0.0 Sodium 138 140 Potassium 4.3 4.4 Chloride 103 108 Carbon Dioxide 26 26 Anion Gap 13 10 L BUN 13 10 Creatinine 0.71 0.75 Estim Creat Clear Calc 140.6 133.1 Estimated GFR > 60 > 60 Random Glucose 98 91 Calcium 9.6 8.6 D Total Bilirubin 0.2 AST 13 ALT 18 Alkaline Phosphatase 157 H Troponin I High Sens < 2.7 Total Protein 8.1 H Albumin 4.1 Triglycerides 295 H Lipase 45 Urine Color Yellow Urine Appearance Clear Urine pH 8.0 Ur Specific Webb >= 1.030 H Urine Protein Negative Urine Glucose (UA) Negative Urine Ketones Negative Urine Blood Negative Urine Nitrite Negative Ur Leukocyte Esterase Negative Imaging Radiology Impressions: ITS Impressions Knee X-Ray 12/12/23 19:44 IMPRESSION: Changes of osteoarthritis and small joint effusion on the right Shoulder X-Ray 12/12/23 19:44 IMPRESSION: 1. No radiographic evidence of acute fracture. 2. Cephalad migration of humeral head could be a sequela of chronic rotator cuff tear. This can be evaluated by MRI if clinically indicated. 3. Underlying degenerative osteoarthritis. Abdomen/Pelvis CT 12/12/23 20:51 IMPRESSION: 1. There is mild peripancreatic fat stranding around the tail of the pancreas raising concern for MILD ACUTE PANCREATITIS. There are diffuse pancreatic calcifications which might be sequela of prior or chronic pancreatitis. 2. There is a bilobed fluid-filled structure within the tail of the pancreas at the center of the fat stranding measuring 3 x 1.9 cm which could be developing pseudocyst versus cystic neoplasm lesion. Pancreatic soft tissue from the tail is abutting tethering fixed into the adjacent gastric wall. More advanced imaging with contrast enhanced MRI might be indicated for more investigation to assess for the possibility of neoplasm. 3. Other noncritical findings as above. Cervical Spine CT 12/12/23 21:05 IMPRESSION: 1. No CT evidence of cervical spine fracture. 2. Reversal of normal cervical lordosis probably spasm. 3. Advanced degenerative disc disease at multiple levels. 4. Facet joints arthropathy at multiple levels. 5. Peripheral pulmonary emphysema. 6. Developed osteophyte from the edges of endplates encroaching on the neural foramen possibly foraminal stenosis at C5-C6 right more than left, MRI could be utilized to assess for possible nerve impingement if clinically indicated. 7. Incidental finding was made of Mildly enlarged bilateral cervical lymph nodes along the carotid sheaths, although could be inflammatory or reactive, cannot rule out the possibility of primary or metastatic process. Clinical correlation and follow-up outpatient cervical ultrasound recommended. (Referring physician staff is being called, by physician staff assistance, to be alerted of the above critical findings and recommendations.) EM 12/12/2023 9:[address] 12/12/23 21:[address] IMPRESS[address]: 1[address] No [address] evidence of intracranial space-occupying mass, bleed or infarct. 2. Mucosal thickening right maxillary sinus and occluding the right ostiomeatal units. Mental Status Exam Mental Status Exam Narrative: Appearance: wearing hospital gown, fair hygiene, some visible discomfort due to abdominal pain Behavior: cooperative Psychomotor: no agitation or retardation noted Speech: clear, normal rate/rhythm/volume, spontaneous TP: linear TC: no signs of psychosis, having a lot of pain, wanting treatment Mood: in pain Affect: congruent SI: passive HI: none AH/VH: none Delusions: none Insight/judgment: fair x 2. Memory/cog: alert, oriented x 3. grossly intact to conversational testing. Medications Medications Current Medications Acetaminophen (Acetaminophen 325 Mg Tablet) 650 mg PO Q6H PRN PRN Reason: Pain, Mild (Pain Scale 1-3) Acetaminophen (Acetaminophen Supp 650 Mg Supp.Rect) 650 mg AR Q6H PRN PRN Reason: Pain, Mild (Pain Scale 1-3) Enoxaparin Sodium (Enoxaparin Sodium 40 Mg/0.4 Ml Syringe) 40 mg SUBCUT Q24H [facility] Last Admin: 12/12/23 23:20 Dose: 40 mg Sodium Chloride (Ns) 1,000 mls @ 125 mls/hr IVCONT .Q8H [facility] Last Admin: 12/13/23 09:18 Dose: 125 mls/hr Melatonin (Melatonin 3 Mg Tablet) 6 mg PO BEDTIME PRN PRN Reason: Insomnia Last Admin: 12/12/23 23:20 Dose: 6 mg Morphine Sulfate (Morphine Sulfate 4 Mg/Ml Cartridge) 4 mg IVPUSH Q4H PRN; Protocol PRN Reason: Pain, Severe (Pain Scale 7-10) Last Admin: 12/13/23 11:12 Dose: 4 mg Ondansetron HCl (Ondansetron Hcl 4 Mg/2 Ml Vial) 4 mg IVPUSH Q8H PRN PRN Reason: Nausea and Vomiting Last Admin: 12/13/23 11:12 Dose: 4 mg Sodium Chloride (0.9 % Sodium Chloride Flush 3 Ml Syringe) 3 ml IVFLUSH QSHIFT [facility] Last Admin: 12/13/23 07:22 Dose: Not Given Thiamine HCl (Thiamine Hcl 100 Mg Tablet) 100 mg PO DAILY [facility] Last Admin: 12/13/23 09:18 Dose: 100 mg Allergies Allergies Allergy/AdvReac Type Severity Reaction Status Date / Time No Known Allergies Allergy Verified 12/12/23 19:17 Assessment & Plan Assessment & Plan (1) MDD (major depressive disorder), recurrent episode, moderate: Status: Acute Code(s): F33.1 - Major depressive disorder, recurrent, moderate (2) Opioid use disorder: Status: Acute Code(s): F11.90 - Opioid use, unspecified, uncomplicated (3) Alcohol use disorder, moderate, dependence: Status: Acute Code(s): F10.20 - Alcohol dependence, uncomplicated Plan Mr. Robb is a 48 year-old male hx of alcohol/opioid use, MDD, admitted medically for acute pancreatitis. He was sent here from [facility] where he was receiving psychiatric treatment for depression and suicidality. He stopped psych meds due to emesis/abdominal pain at this point. Can resume once feeling better. Once he is medically cleared, have care team assess pt for disposition. - may not need sitter as do not suspect pt would harm himself while in the hospital. He appears help seeking and denies any plan or intent to harm himself. Total time managing care of this patient today ____ minutes.
[2023-12-13] MEDS: gadobutroL 10 ML VIAL IVPUSH (14:18)
[2023-12-13 14:38] VITALS: BP 100/68; PULSE 64; RESP 14; TEMP 36.7; O2SAT 98
[2023-12-13 19:41] VITALS: BP 130/74; PULSE 62; RESP 16; TEMP 36.4; O2SAT 98
[2023-12-13] MEDS: Enoxaparin Sodium 40 MG/0.4 ML SYRINGE SUBCUT (21:49)
[2023-12-14] MEDS: Morphine Sulfate 4 MG/ML CARTRIDGE IVPUSH ×5 (03:25→22:37)
[2023-12-14] MEDS: 0.9 % Sodium Chloride 1,000 ML 125 ML IVCONT ×3 (03:26→22:36)
[2023-12-14 03:50] VITALS: BP 128/68; PULSE 63; RESP 14; TEMP 36.1; O2SAT 96
[2023-12-14 05:55] LABS: Hematocrit 42.3 % (42.0-52.0); Hemoglobin 13.7 g/dl (14.0-18.0); Mean Corpuscular HGB Conc 32.4 g/dl (31.0-36.0); Mean Corpuscular Volume 89.6 fL (80.0-98.0); Mean Platelet Volume 9.4 fL (9.4-12.4); Platelet Count 352 X10*3/uL (160-400); Red Blood Count 4.72 X10*6/uL (4.60-5.80); Red Cell Distribution Width 15.7 % (11.0-16.0); White Blood Count 5.7 X10*3/uL (4.8-10.8)
[2023-12-14 06:01] LABS: Alanine Aminotransferase 21 U/L (0-40); Albumin Level 3.6 g/dL (3.5-5.0); Alkaline Phosphatase 154 U/L (39-117); Anion Gap 12 (12-20); Aspartate Amino Transferase 20 U/L (5-37); Bilirubin Direct 0.1 mg/dL (0.0-0.5); Bilirubin Total 0.3 mg/dL (0.0-1.0); Blood Urea Nitrogen 7 mg/dL (9-16); Calcium 8.7 mg/dL (8.4-10.2); Carbon Dioxide 28 mmol/L (22-29); Chloride 105 mmol/L (96-108); Creatinine Clr Calc Pharmacy 131.4; Estimated Glomerular Filt Rate > 60; Glucose Fasting 103 mg/dL (60-99); Sodium 141 mmol/L (135-145); Total Protein 7.1 g/dL (6.5-8.0)
[2023-12-14 06:55] VITALS: BP 124/84; PULSE 62; RESP 14; TEMP 36.1; O2SAT 97
[2023-12-14] MEDS: Thiamine HCL 100 MG TABLET PO (08:19)
--- NOTE | 2023-12-14 08:33 | MHC.CM.PN ---
PATIENT VERIFIES NAME AND , BUT STATES THAT HE IS FROM [facility], AND NOT [place]. HE DOES IDENTIFY HOMELESS, AND PREFERS TO RETURN TO [place] ONCE HIS TREATMENT IS COMPLETED. PATIENT IS IN FROM [facility]. HE DOES NOT HAVE A PCP OR HCP. PATIENT EDUCATED ON IMPORTANCE OF HCP. HE STATES THAT HE WILL CONSIDER AND ASK FOR CASE MANAGEMENT IF HE CHOOSES TO SIGN AN AGENT.
--- NOTE | 2023-12-14 08:50 | HO.PM.IMPN ---
Subjective Subjective Date of Service: 12/14/23 Interval History: no change Physical Exam Vital Signs: Vital Signs: Last Vital Signs Temp 97.0 F 12/14/23 06:55 Pulse 62 12/14/23 06:55 Resp 14 12/14/23 06:55 BP 124/84 12/14/23 06:55 Pulse Ox 97 12/14/23 06:55 O2 Del Method Room Air 12/14/23 06:55 BMI result Body Mass Index 25.3 General: AO X 3, no acute distress Resp: CTA bilateral, no accessory muscles used CVS: S1,S2,RRR GI: soft, epsigatrum tender, non distended Neuro: motor grossly intact, alert Psych: appropriate affect, appropriate insight Objective Data Active Medications Acetaminophen (Acetaminophen 325 Mg Tablet) 650 mg PO Q6H PRN PRN Reason: Pain, Mild (Pain Scale 1-3) Acetaminophen (Acetaminophen Supp 650 Mg Supp.Rect) [address] Q6H PRN PRN Reason: Pain, Mild (Pain Scale 1-3) Enoxaparin Sodium (Enoxaparin Sodium 40 Mg/0.4 Ml Syringe) 40 mg SUBCUT Q24H REPLACED BY [facility] Last Admin: 12/13/23 21:49 Dose: 40 mg Documented By: FAYE Sodium Chloride (Ns) 1,000 mls @ 125 mls/hr IVCONT .Q8H REPLACED BY [facility] Last Admin: 12/14/23 03:26 Dose: 125 mls/hr Documented By: FAYE Melatonin (Melatonin 3 Mg Tablet) 6 mg PO BEDTIME PRN PRN Reason: Insomnia Last Admin: 12/12/23 23:20 Dose: 6 mg Documented By: RADHA Morphine Sulfate (Morphine Sulfate 4 Mg/Ml Cartridge) 4 mg IVPUSH Q4H PRN; Protocol PRN Reason: Pain, Severe (Pain Scale 7-10) Last Admin: 12/14/23 08:19 Dose: 4 mg Documented By: MRAS Ondansetron HCl (Ondansetron Hcl 4 Mg/2 Ml Vial) 4 mg IVPUSH Q8H PRN PRN Reason: Nausea and Vomiting Last Admin: 12/13/23 11:12 Dose: 4 mg Documented By: TETE Sodium Chloride (0.9 % Sodium Chloride Flush 3 Ml Syringe) 3 ml IVFLUSH QSHIFT REPLACED BY [facility] Last Admin: 12/14/23 08:06 Dose: Not Given Documented By: MARS Non-Admin Reason: IV Running Thiamine HCl (Thiamine Hcl 100 Mg Tablet) 100 mg PO DAILY REPLACED BY [facility] Last Admin: 12/14/23 08:19 Dose: 100 mg Documented By: MARS Labs 12/14/23 05:31 12/14/23 05:31 Labs: Laboratory Results - last 24 hr 12/14/23 05:31 MCV 89.6 MCH 29.0 MCHC 32.4 RDW 15.7 Plt Count 352 MPV 9.4 Absolute Nucleated RBC 0.000 Nucleated RBC % (auto) 0.0 Anion Gap 12 Estim Creat Clear Calc 131.4 Estimated GFR > 60 Fasting Glucose 103 H Calcium 8.7 Total Bilirubin 0.3 Direct Bilirubin 0.1 AST 20 ALT 21 Alkaline Phosphatase 154 H Total Protein 7.1 Albumin 3.6 Assessment and Plan (1) Suicidal ideations: Status: Acute Plan 48M PMH etoh dependence with history of pancreatitis, opiate dependence, presented with abd pain, SI acute etoh pancreatitis with ?pseuodcyst ivf, not up for solids yet, continue clears, pain control, follow up mri abd etoh and opiate dpeendecne ciwa addiction eval SI care team eval on medical clearance 1:1 dvt prophylaxis- lovenox full code reason for continued hospitalization:not tolerating solids Quality Stroke Does the patient have a stroke diagnosis?: No VTE Prior VTE?: No VTE Risk Level:: Medical - moderate - high VTE Device Contraindication: Treatment Not Indicated VTE Drug Contraindication: N/A - Med Ordered
[2023-12-14] MEDS: polyethylene glycoL 3350 17 GM POWD.PACK PO (11:29)
[2023-12-14 15:27] VITALS: BP 134/80; PULSE 55; RESP 17; TEMP 36.2; O2SAT 98
--- NOTE | 2023-12-14 15:28 | MHC.RECOVRN ---
Met with pt in 387 after consult placed to Addiction Medicine for alcohol use. Pt had presented to the ED from [facility] reporting 2 days of abdominal pain, hx pancreatitis, alcohol use. Upon evaluation, pt admitted for acute on chronic pancreatitis and SI. Pt laying in bed, awake, alert, difficult to engage in conversation, reporting abdominal pain. Pt reports prior to admission to [facility] he had been drinking 1 pint of vodka daily x 1/1.5 months. Prior to that, pt had been in recovery for 15 months. Pt reports not getting was the biggest factor in recovery, pt is now from which led to recurrence. Pt is currently on Suboxone, had been taking it up until he was admitted to [facility]. Pt reports Suboxone x 4 years, has not used opioids during that time. Pt is from [place], was in [facility] staying with a friend. Pt plans to return to [place] when medically and psychiatrically cleared. Pt familiar with recovery resources in the [place] area, declines need for information or referrals. Pt denies other questions or concerns for t/w.
[2023-12-14 19:23] VITALS: BP 139/86; PULSE 62; RESP 18; TEMP 36.6; O2SAT 98
[2023-12-14] MEDS: Melatonin 3 MG TABLET 6 MG PO (22:36)
[2023-12-14] MEDS: Zolpidem Tartrate 5 MG TABLET PO (23:15)
[2023-12-15 04:00] VITALS: BP 109/72; PULSE 61; RESP 18; TEMP 35.9; O2SAT 99
[2023-12-15] MEDS: Morphine Sulfate 4 MG/ML CARTRIDGE IVPUSH ×5 (06:02→23:44)
[2023-12-15 08:00] VITALS: BP 140/79; PULSE 55; RESP 16; TEMP 35.5; O2SAT 97
[2023-12-15] MEDS: 0.9 % Sodium Chloride Flush 3 ML SYRINGE IVFLUSH ×3 (08:15→19:37)
[2023-12-15] MEDS: Thiamine HCL 100 MG TABLET PO (10:27)
[2023-12-15] MEDS: ondansetron HCL 4 MG/2 ML VIAL IVPUSH ×2 (10:27→19:55)
--- NOTE | 2023-12-15 10:27 | P.PNIM_ITS ---
Subjective Subjective Date of Service: 12/15/23 Interval History: tried solids but had pain and nausea Physical Exam 2 Vital Signs: Vital Signs: Last Vital Signs Temp 96 F L 12/15/23 08:00 Pulse 55 12/15/23 08:00 Resp 16 12/15/23 08:00 BP 140/79 H 12/15/23 08:00 Pulse Ox 97 12/15/23 08:00 O2 Del Method Room Air 12/15/23 04:00 BMI result Body Mass Index 25.3 General: AO X 3, no acute distress Resp: CTA bilateral, no accessory muscles used CVS: S1,S2,RRR GI: soft, epsigatrum tender, non distended Neuro: motor grossly intact, alert Psych: appropriate affect, appropriate insight Objective Data Active Medications Acetaminophen (Acetaminophen 325 Mg Tablet) 650 mg PO Q6H PRN PRN Reason: Pain, Mild (Pain Scale 1-3) Acetaminophen (Acetaminophen Supp 650 Mg Supp.Rect) 650 mg [place] Q6H PRN PRN Reason: Pain, Mild (Pain Scale 1-3) Enoxaparin Sodium (Enoxaparin Sodium 40 Mg/0.4 Ml Syringe) 40 mg SUBCUT Q24H [facility] Last Admin: 12/14/23 23:16 Dose: Not Given Documented By: FAYE Non-Admin Reason: Patient Refused Melatonin (Melatonin 3 Mg Tablet) 6 mg PO BEDTIME PRN PRN Reason: Insomnia Last Admin: 12/14/23 22:36 Dose: 6 mg Documented By: FAYE Morphine Sulfate (Morphine Sulfate 4 Mg/Ml Cartridge) 4 mg IVPUSH Q4H PRN; Protocol PRN Reason: Pain, Severe (Pain Scale 7-10) Last Admin: 12/15/23 06:02 Dose: 4 mg Documented By: FAYE Ondansetron HCl (Ondansetron Hcl 4 Mg/2 Ml Vial) 4 mg IVPUSH Q8H PRN PRN Reason: Nausea and Vomiting Last Admin: 12/13/23 11:12 Dose: 4 mg Documented By: TETE Sodium Chloride (0.9 % Sodium Chloride Flush 3 Ml Syringe) 3 ml IVFLUSH QSHIFT [facility] Last Admin: 12/15/23 08:15 Dose: 3 ml Documented By: KARLOS Thiamine HCl (Thiamine Hcl 100 Mg Tablet) 100 mg PO DAILY [facility] Last Admin: 12/14/23 08:19 Dose: 100 mg Documented By: MARS Labs 12/14/23 05:31 12/14/23 05:31 Assessment and Plan (1) Suicidal ideations: Status: Acute Plan 48M PMH etoh dependence with history of pancreatitis, opiate dependence, presented with abd pain, SI acute etoh pancreatitis with ?pseuodcyst ivf, not tolerating solids yet, pain control, mri abd most c/w post pancreatitis squelae, can follow up repeat in several months etoh and opiate dpeendecne ciwa stable SI care team eval on medical clearance 1:1 dvt prophylaxis- lovenox full code reason for continued hospitalization:not tolerating solids Quality Stroke Does the patient have a stroke diagnosis?: No VTE Prior VTE?: No VTE Risk Level:: Medical - moderate - high VTE Device Contraindication: Treatment Not Indicated VTE Drug Contraindication: N/A - Med Ordered
[2023-12-15 15:57] VITALS: BP 130/83; PULSE 58; RESP 16; TEMP 36.2; O2SAT 98
--- NOTE | 2023-12-15 16:22 | MHC.CM.PN ---
PT NOT YET MEDICALLY CLEARED ONCE CLEAR, HE WILL HAVE A CARE TEAM EVAL DCP RETURN TO [facility] VS RETURN TO [facility]
[2023-12-15 19:22] VITALS: BP 127/94; PULSE 64; RESP 18; TEMP 36; O2SAT 98
[2023-12-15] MEDS: Enoxaparin Sodium 40 MG/0.4 ML SYRINGE SUBCUT (22:20)
[2023-12-15 23:44] VITALS: RESP 18
[2023-12-16 02:30] VITALS: BP 130/62; PULSE 56; RESP 18; TEMP 37; O2SAT 98
[2023-12-16] MEDS: Morphine Sulfate 4 MG/ML CARTRIDGE IVPUSH ×3 (05:09→13:37)
[2023-12-16 06:28] LABS: Hematocrit 44.1 % (42.0-52.0); Hemoglobin 14.4 g/dl (14.0-18.0); Mean Corpuscular HGB Conc 32.7 g/dl (31.0-36.0); Mean Corpuscular Hemoglobin 28.4 pg (27.0-33.0); Mean Platelet Volume 9.5 fL (9.4-12.4); Platelet Count 419 X10*3/uL (160-400); Red Blood Count 5.07 X10*6/uL (4.60-5.80); Red Cell Distribution Width 15.4 % (11.0-16.0); White Blood Count 7.1 X10*3/uL (4.8-10.8)
[2023-12-16 06:51] LABS: Anion Gap 13 (12-20); Blood Urea Nitrogen 6 mg/dL (9-16); Calcium 9.4 mg/dL (8.4-10.2); Carbon Dioxide 26 mmol/L (22-29); Chloride 105 mmol/L (96-108); Creatinine Clr Calc Pharmacy 133.1; Estimated Glomerular Filt Rate > 60; Glucose Fasting 105 mg/dL (60-99); Potassium 3.7 mmol/L (3.3-5.1); Sodium 140 mmol/L (135-145)
[2023-12-16] MEDS: ondansetron HCL 4 MG/2 ML VIAL IVPUSH (07:42)
[2023-12-16] MEDS: 0.9 % Sodium Chloride Flush 3 ML SYRINGE IVFLUSH (07:43)
[2023-12-16 08:00] VITALS: BP 119/89; PULSE 64; RESP 16; TEMP 36.7; O2SAT 99
[2023-12-16] MEDS: Thiamine HCL 100 MG TABLET PO (08:29)
--- NOTE | 2023-12-16 09:03 | P.PNIM_ITS ---
Subjective Subjective Date of Service: 12/16/23 Interval History: some nausea but overall tolerating solids Physical Exam 2 Vital Signs: Vital Signs: Last Vital Signs Temp 98.1 F 12/16/23 08:00 Pulse 64 12/16/23 08:00 Resp 16 12/16/23 08:00 BP 119/89 12/16/23 08:00 Pulse Ox 99 12/16/23 08:00 O2 Del Method Room Air 12/16/23 08:00 BMI result Body Mass Index 25.3 General: AO X 3, no acute distress Resp: CTA bilateral, no accessory muscles used CVS: S1,S2,RRR GI: soft, non tender, non distended Neuro: motor grossly intact, alert Psych: appropriate affect, appropriate insight Objective Data Active Medications Acetaminophen (Acetaminophen 325 Mg Tablet) 650 mg PO Q6H PRN PRN Reason: Pain, Mild (Pain Scale 1-3) Acetaminophen (Acetaminophen Supp 650 Mg Supp.Rect) 650 mg [place] Q6H PRN PRN Reason: Pain, Mild (Pain Scale 1-3) Enoxaparin Sodium (Enoxaparin Sodium 40 Mg/0.4 Ml Syringe) 40 mg SUBCUT Q24H [facility] Last Admin: 12/15/23 22:20 Dose: 40 mg Documented By: JAYDA Melatonin (Melatonin 3 Mg Tablet) 6 mg PO BEDTIME PRN PRN Reason: Insomnia Last Admin: 12/14/23 22:36 Dose: 6 mg Documented By: FAYE Morphine Sulfate (Morphine Sulfate 4 Mg/Ml Cartridge) 4 mg IVPUSH Q4H PRN; Protocol PRN Reason: Pain, Severe (Pain Scale 7-10) Last Admin: 12/16/23 05:09 Dose: 4 mg Documented By: JAYDA Ondansetron HCl (Ondansetron Hcl 4 Mg/2 Ml Vial) 4 mg IVPUSH Q8H PRN PRN Reason: Nausea and Vomiting Last Admin: 12/16/23 07:42 Dose: 4 mg Documented By: KALYANI Sodium Chloride (0.9 % Sodium Chloride Flush 3 Ml Syringe) 3 ml IVFLUSH QSHIFT [facility] Last Admin: 12/16/23 07:43 Dose: 3 ml Documented By: KALYANI Thiamine HCl (Thiamine Hcl 100 Mg Tablet) 100 mg PO DAILY [facility] Last Admin: 12/16/23 08:29 Dose: 100 mg Documented By: KALYANI Labs 12/16/23 06:11 12/16/23 06:11 Labs: Laboratory Results - last 24 hr 12/16/23 06:11 MCV 87.0 MCH 28.4 MCHC 32.7 RDW 15.4 Plt Count 419 H MPV 9.5 Absolute Nucleated RBC 0.000 Nucleated RBC % (auto) 0.0 Anion Gap 13 Estim Creat Clear Calc 133.1 Estimated GFR > 60 Fasting Glucose 105 H Calcium 9.4 D Assessment and Plan (1) Suicidal ideations: Status: Acute Plan 48M PMH etoh dependence with history of pancreatitis, opiate dependence, presented with abd pain, SI acute etoh pancreatitis with ?pseuodcyst tolerating solids mri abd most c/w post pancreatitis squelae, can follow up repeat in several months etoh and opiate dpeendecne ciwa stable SI medically cleared will request care team eval dvt prophylaxis- lovenox full code reason for continued hospitalization: care team eval pending Quality Stroke Does the patient have a stroke diagnosis?: No VTE Prior VTE?: No VTE Risk Level:: Medical - moderate - high VTE Device Contraindication: Treatment Not Indicated VTE Drug Contraindication: N/A - Med Ordered
--- NOTE | 2023-12-16 12:14 | PM.DS ---
DS: Providers Provider Date of Service: 12/16/23 Date of admission: 12/12/23 23:01 Primary care physician: Unknown Physician Consults: 12/12/23 23:02 Consult for Sitter Routine Reason for consultation: SI Consult to Psychiatry Routine Consulting Provider: Psych Covering Reason for consultation: SI 12/13/23 00:00 Addiction Medicine Routine Consulting Provider: Addiction Covering Reason for consultation: Alcohol use disorder 12/16/23 08:08 Consult to Care Team Routine Comment: Reason for consultation: SI, medically cleared DS: Diagnosis Discharge Diagnosis (1) Suicidal ideations: Status: Acute DS: Summary Hospital Course Hospital Course: from initial hpi: 48-year-old male with pertinent history of mood disorder, alcohol use disorder with history of alcohol induced pancreatitis and alcohol withdrawal seizures, opioid disorder on Suboxone who presents to the emergency department for evaluation of abdominal pain. Patient states he started having epigastric discomfort 2 days prior to presentation. It was constant, progressive over 2 days and radiated to the back. It felt like his pain of pancreatitis that he is experienced before. Also has associated nausea and nonbloody emesis. Patient states his last alcoholic drink was 2-3 days prior to presentation. States he was withdrawing over the last 2-3 days but now feels like he is past his withdrawal. Patient is currently at [facility] for suicidal ideation. Admits to drinking about 1.5 pt of vodka every day since he from his several months ago. Patient further states that here in episode where he passed out and hit his head 1 day prior to presentation when he was in the bathroom and urinating. This has never happened before. No fever, chills, chest discomfort, palpitations, changes in urinary or bowel habits. No tongue bite, rhythmic jerking movement of extremities In the emergency department, imaging with peripancreatic fat stranding. hospital course: Patient was admitted for acute alcoholic pancreatitis. He was given IV fluids, pain meds his diet was slowly advanced and he is now tolerating solids. MRI of the abdomen was consistent with sequelae of pancreatitis and can follow up repeat in several months. For his alcohol and opiate dependence he did not demonstrate any withdrawal. He was continued on opiate replacement therapy. Patient initially presented with suicide ideation. He was seen by care team and felt to no longer be risk for self-harm. Patient will be discharged to custodial. Time Attestation Discharge coordination time: Greater than 30 minutes Quality: Safe Use of Opioids Does Pt have an Active Cancer Diagnosis on the Problem List?: No Quality: Stroke Does the patient have a stroke diagnosis?: No Physical Exam Vital Signs: Vital Signs: Last Vital Signs Temp 98.1 F 12/16/23 08:00 Pulse 64 12/16/23 08:00 Resp 16 12/16/23 08:00 BP 119/89 12/16/23 08:00 Pulse Ox 99 12/16/23 08:00 O2 Del Method Room Air 12/16/23 08:00 BMI result Body Mass Index 25.3 General: AO X 3, no acute distress Resp: CTA bilateral, no accessory muscles used CVS: S1,S2,RRR GI: soft, non tender, non distended Neuro: motor grossly intact, alert Psych: appropriate affect, appropriate insight DS: Data Data Completed and Pending Labs on day of discharge: Laboratory Results - last 24 hr 12/16/23 06:11 WBC 7.1 RBC 5.07 Hgb 14.4 Hct 44.1 MCV 87.0 MCH 28.4 MCHC 32.7 RDW 15.4 Plt Count 419 H MPV 9.5 Absolute Nucleated RBC 0.000 Nucleated RBC % (auto) 0.0 Sodium 140 Potassium 3.7 Chloride 105 Carbon Dioxide 26 Anion Gap 13 BUN 6 L Creatinine 0.75 Estim Creat Clear Calc 133.1 Estimated GFR > 60 Fasting Glucose 105 H Calcium 9.4 D Discharge Plan Discharge Anticipated Discharge Date/Time: 12/16/23 12:12 Patient Disposition: Half-Way Discharge Diagnosis: pancreatitis Referrals: Physician,Unknown J [Primary Care Provider] - 1 Week Discharge Medications: Continued buprenorphine-naloxone [Suboxone] 8-2 mg Film 1 film BUCCAL BID bupropion HCl 200 mg Tablet Sustained-Release 12 Hr 200 mg PO DAILY duloxetine 30 mg Capsule,Delayed Release(Dr/Ec) 90 mg PO DAILY prazosin 5 mg Capsule 5 mg PO DAILY gabapentin 800 mg Tablet 800 mg PO TID Discharge Orders: Discharge Order (Routine); Ordered 12/16/23 Ordered By: Shine Manzanarse Diet: Advance to usual diet Activity on Discharge: As tolerated Stand Alone Forms: Patient Portal Discharge page Care Plan Goals: recovery Health Concerns: etoh and opiate dependence, pancreatitis Plan of Treatment: avoid alcohol and heroin, low fat diet Assessment: see above
[2023-12-16] MEDS: Promethazine HCL 25 MG TABLET PO (13:37)
== END 2023-12-16 14:23 | disposition home or self-care (01) | DRG 282 ==
LOC: HO.ED 23:01 → HO.EDOVER 23:05 → HO.S3 12-13 14:08
PROVIDERS: Admitting Provider Student in an Organized Health Care Education/Training Program; Emergency Provider Emergency Medicine Emergency Medical Services; Visit Provider Internal Medicine
DX: K85.20 Alcohol induced acute pancreatitis without necrosis or infection (principal); R45.851 Suicidal ideations; F33.1 Major depressive disorder, recurrent, moderate; F11.20 Opioid dependence, uncomplicated; F10.20 Alcohol dependence, uncomplicated; K86.3 Pseudocyst of pancreas; K86.0 Alcohol-induced chronic pancreatitis; F17.210 Nicotine dependence, cigarettes, uncomplicated; Z59.02 Unsheltered homelessness; Z71.6 Tobacco abuse counseling; Z79.899 Other long term (current) drug therapy
CPT/HCPCS: 36415; 70450; 72125; 73030; 73560; 74177; 74183; 80048; 80053; 80076; 81003; 83690; 84478; 84484; 85025; 85027; 93005; 99285; A9585; J1170; J1650; J1885; J2270; J2405; J3411; J7120; Q9967; S9485

== ENCOUNTER → 2023-12-12 19:23 | Outpatient (BNV) | payer MEDICAID, SELFPAY | PROVIDERS: Admitting Provider Student in an Organized Health Care Education/Training Program; Emergency Provider Emergency Medicine Emergency Medical Services; Visit Provider Internal Medicine Cardiovascular Disease | DX: R10.9 Unspecified abdominal pain (principal) | CPT/HCPCS: 93010 ==

== ENCOUNTER → 2023-12-12 23:01 | Outpatient (BNV) | payer OTHER, SELFPAY | PROVIDERS: Admitting Provider Student in an Organized Health Care Education/Training Program; Emergency Provider Emergency Medicine Emergency Medical Services; Visit Provider Social Worker | DX: F33.1 Major depressive disorder, recurrent, moderate (principal); F10.20 Alcohol dependence, uncomplicated; F11.90 Opioid use, unspecified, uncomplicated | CPT/HCPCS: 99232 ==

== ENCOUNTER → 2023-12-12 23:01 | Outpatient (BNV) | payer MEDICAID, SELFPAY | PROVIDERS: Admitting Provider Student in an Organized Health Care Education/Training Program; Emergency Provider Emergency Medicine Emergency Medical Services; Visit Provider Student in an Organized Health Care Education/Training Program | DX: K85.90 Acute pancreatitis without necrosis or infection, unspecified (principal); K86.1 Other chronic pancreatitis; R45.851 Suicidal ideations | CPT/HCPCS: 99223; 99232; 99238 ==